=== PATIENT | male | born 1955 | race Caucasian/White ===

== ENCOUNTER 2018-01-14 06:47 | Day surgery (SDC) | payer OTHER ==
[~2018-01-14] VITALS: Ht 170.2 cm; Wt 107.0 kg
[~2018-01-14 06:47] MED LIST: ASPIR 8181 M1 PO; CLOPIDOGREL75 MG PO; CYANOCOBALAM1000 MCG PO; LEXAPRO20 MG PO; LIPITOR40 MG PO; LOVENOX100 MG/1 M SC; MUCINEX D ER T1 EACH PO; NYQUIL PO; OXYCODONE HCL5 MG PO; TYLENOL PM1 CAPLET PO
[2018-01-14 07:45] VITALS: BP 159/87
[2018-01-14] MEDS ORDERED: NORCO 5/3251 TABLET PO (11:09)
[2018-01-14 11:47] VITALS: BP 152/82
[2018-01-14 12:40] VITALS: BP 169/80
== END 2018-01-14 13:05 | disposition home or self-care (01) ==
LOC: SDC 06:47
PROC: 0WUF0JZ Supplement Abdominal Wall with Synthetic Substitute, Open Approach (ICD-10-PCS; principal; 2018-01-14)
DX: K42.9 Umbilical hernia without obstruction or gangrene (principal); I10 Essential (primary) hypertension; I25.10 Atherosclerotic heart disease of native coronary artery without angina pectoris; F41.1 Generalized anxiety disorder; E78.4 Other hyperlipidemia; Z86.72 Personal history of thrombophlebitis; Z95.1 Presence of aortocoronary bypass graft; Z86.73 Personal history of transient ischemic attack (TIA), and cerebral infarction without residual deficits; Z79.82 Long term (current) use of aspirin
CPT/HCPCS: C1781; J0690; J1885; J2250; J2405; J3010; S0020